=== PATIENT | male | born 1995 | race Caucasian/White ===

== ENCOUNTER 2019-09-23 17:02 | Emergency (ER) | payer OTHER ==
[~2019-09-23] VITALS: Ht 193 cm; Wt 148.8 kg
[2019-09-23 17:06] VITALS: BP 148/76
[2019-09-23] MEDS ORDERED: LIDOCAINE 1%, 10ML INFIL ONE (17:30)
[2019-09-23] MEDS ORDERED: DIPH,PERTUSS(ACELL),TET VAC/PF 0.5 ML IM-VACC ONE ×2 (17:30→18:45)
--- NOTE | 2019-09-23 18:28 | NUR ---
Pt to room from lobby.
--- NOTE | 2019-09-23 18:38 | NUR ---
FIRST CONTACT WITH PT. PT CAME IN CO OF LAC OVER RIGHT EYE. DENIES ANY SYMPTOMS OR LOC. DENIES NECK PAIN OR BACK PAIN. PT'S AOX4. RESPS EVEN AND UNLABORED.
--- NOTE | 2019-09-23 18:52 | NUR ---
T DAP GIVEN AT THIS TIME.
--- NOTE | 2019-09-23 19:08 | NUR ---
REPORT GIVEN TO TRUDY JORGE.
--- NOTE | 2019-09-23 19:10 | NUR ---
assuemed care of pt. report from Pam JORGE. pt here for head laceration and is awaiting wound closure. pt resting in position of comfort. no apparent distress
[2019-09-23] MEDS ORDERED: LIDOCAINE-MPF 1%, 5ML ONE (19:14)
[2019-09-23] MEDS ORDERED: NEOSPORIN OINT. PKT 1 PACKET ONE (19:50)
--- NOTE | 2019-09-23 20:20 | NUR ---
this pt was D/C by another RN
== END 2019-09-23 20:25 | disposition home or self-care (01) ==
LOC: ED 19:55
DX: S01.111A Laceration without foreign body of right eyelid and periocular area, initial encounter (principal); F17.200 Nicotine dependence, unspecified, uncomplicated; W01.0XXA Fall on same level from slipping, tripping and stumbling without subsequent striking against object, initial encounter; Y93.89 Activity, other specified; Y92.009 Unspecified place in unspecified non-institutional (private) residence as the place of occurrence of the external cause; Y99.8 Other external cause status
CPT/HCPCS: 12053; 90471; 90715